=== PATIENT | male | born 1955 | race Caucasian/White ===

== ENCOUNTER 2020-08-25 14:35 | Inpatient (IN) | payer MEDICARE, SELFPAY ==
[2020-08-25 15:46] VITALS: BMI 31.5
[2020-08-25 16:00] VITALS: BP 114/76; PULSE 88; RESP 20; TEMP 36.4; O2SAT 91
[2020-08-25] MEDS: MONTELUKAST SODIUM 10 MG TABLET PO (16:53)
[2020-08-25] MEDS: DOXYCYCLINE HYCLATE 100 MG TABLET PO (16:54)
[2020-08-25] MEDS: FUROSEMIDE 40 MG TABLET PO (16:54)
[2020-08-25] MEDS: BUDESONIDE/FORMOTEROL (*SP) 160-4.5 MCG 6 GM INH 2 PUFF INHALATION (16:54)
[2020-08-25] MEDS: APIXABAN 2.5 MG TABLET 5 MG PO (17:08)
[2020-08-25] MEDS: BENZTROPINE MESYLATE 1 MG TABLET PO (17:11)
[2020-08-25] MEDS: IPRATROPIUM 0.5 MG/ALBUTEROL SULFATE 2.5 MG AMPUL.NEB 3 ML INHALATION ×2 (17:30→22:54)
--- NOTE | 2020-08-25 17:37 | ADMGEN ---
This patient, NATTY GUADARRAMA, was admitted to 2nd Floor Room 205-2. Patient/family oriented to hospital policies and general routines including ID bracelet, bed and alarms, visiting hours, pain management, procedures, bathroom and other care routines, personal items, smoking policy, room service/diet, and visiting hours. From [facility]. pt to have lung biopsy in a few weeks, he head refused it at [facility], clothing in bags on chair, pt is on o2 at home at 2L but is on 3 here for sob with movement Information on how to activate the Rapid Response Team has been discussed. Patient/Family are encouraged to report perceived risks to care and to ask questions if they do not understand what they are told or what they should do.
--- NOTE | 2020-08-25 17:39 | PC.NURSE ---
pt up to restroom, sba, pt gait is steady without any assistive devices, returns to chair, 02 back on, tray removed
[2020-08-25 17:41] VITALS: PULSE 57; RESP 20; O2SAT 92
[2020-08-25 17:46] VITALS: PULSE 60; RESP 20; O2SAT 97
[2020-08-25 20:00] VITALS: O2SAT 93
--- NOTE | 2020-08-25 20:45 | PM.IMHP ---
H&P: HPI History of Present Illness Date/Time: 08/25/20 20:45 Chief Complaint: a 64 year old that swing bed recently transferred from [facility] was initially at [facility] for left ankle cellulitis and was treated with antibiotics and subsequently transferred to [facility] where he had bilateral pulmonary opacities indicating pneumonia, CTA was performed which showed a left upper lung mass approximately 3.4cm in diameter, was scheduled for biopsy but the patient was nervous and refused, subsequently there was no treatment per the patient. Patient had history of some COPD is currently on 2L of oxygen, history of hypertension and history of DVT. The patient had MRSA positive in the nares and was on IV vancomycin and currently started on p.o. doxycycline initially is prior to transfer his white count was 29329 currently down to 14,000. Narrative: NATTY GUADARRAMA is a 64 year old male Review of Systems Review of Systems: All systems reviewed & are unremarkable except as noted in HPI and below PMFSH Past Medical History Medical History COPD (chronic obstructive pulmonary disease) HTN (hypertension) Lung mass Family History Family History Mother Cancer Social History Social History Smoking status: Former smoker Tobacco type: cigarettes Second hand tobacco smoke exposure: Yes Alcohol intake: never Substance use: never Substance use type: does not use Gender identity (if verbalized by the patient): Male Spiritual care concerns: No Meds Home Medications and Allergies Home Medications Medication Instructions Recorded Confirmed Type acetaminophen 500 mg PO Q6H PRN 08/25/20 08/25/20 History albuterol sulfate [ProAir HFA] 2 puff INHALATION QID PRN 08/25/20 08/25/20 History alendronate [Fosamax] 70 mg PO WEEKLY 08/25/20 08/25/20 History apixaban [Eliquis] 5 mg PO BID 08/25/20 08/25/20 History aripiprazole [Abilify] 5 mg PO DAILY 08/25/20 08/25/20 History atorvastatin [Lipitor] 40 mg PO HS 08/25/20 08/25/20 History benzonatate [Tessalon Perles] 100 mg PO TID PRN 08/25/20 08/25/20 History benztropine [Cogentin] 1 mg PO BID 08/25/20 08/25/20 History budesonide-formoterol [Symbicort] 2 puff INHALATION Q12H 08/25/20 08/25/20 History doxycycline hyclate 100 mg PO BID 08/25/20 08/25/20 History ferrous sulfate 1 tablet PO DAILY 08/25/20 08/25/20 History finasteride [Proscar] 5 mg PO DAILY 08/25/20 08/25/20 History fluticasone furoate 1 spray INTRANASAL DAILY 08/25/20 08/25/20 History furosemide [Lasix] 40 mg PO BID 08/25/20 08/25/20 History hydrocodone-acetaminophen 1 tablet PO Q6H PRN 08/25/20 08/25/20 History ipratropium bromide 0.5 mg INHALATION Q6H 08/25/20 08/25/20 History ipratropium-albuterol [Combivent 1 puff INHALATION Q4H 08/25/20 08/25/20 History Respimat] lactulose 10 g PO DAILY PRN 08/25/20 08/25/20 History levothyroxine [Synthroid] 75 mcg PO DAILY 08/25/20 08/25/20 History montelukast [Singulair] 10 mg PO QPM 08/25/20 08/25/20 History dikbwzuniyky-enbk-qurhg acid 1 tablet PO DAILY 08/25/20 08/25/20 History [Complete Multivitamin-Mineral] nystatin 1 applic TOPICAL BID 08/25/20 08/25/20 History omeprazole 20 mg PO BID 08/25/20 08/25/20 History polyethylene glycol 3350 [GlycoLax] 17 g PO PRN PRN MDD 17 gram 08/25/20 08/25/20 History potassium chloride 20 meq PO DAILY 08/25/20 08/25/20 History sertraline 100 mg PO DAILY 08/25/20 08/25/20 History tiotropium bromide [Spiriva with 1 cap INHALATION DAILY 08/25/20 08/25/20 History HandiHaler] Allergies Allergy/AdvReac Type Severity Reaction Status Date / Time amoxicillin Allergy Unknown Verified 08/25/20 17:22 levofloxacin [From Levaquin] Allergy Unknown Verified 08/25/20 17:22 nystatin Allergy Unknown Verified 08/25/20 17:22 Sulfa (Sulfonamide Allergy Un
[2020-08-25] MEDS: HYDROcodone/acetaminophen (*CRX) 5-325 MG TABLET 1 TAB PO (21:01)
[2020-08-25] MEDS: ATORVASTATIN 40 MG TABLET PO (21:02)
--- NOTE | 2020-08-25 22:27 | PC.NURSE ---
pt calls frequently, given bruno jose, up to restroom for bm, reclined in chair with feet elevated, fan on
[2020-08-25 22:56] VITALS: PULSE 88; RESP 18; O2SAT 93
[2020-08-25 23:04] VITALS: PULSE 83; RESP 18; O2SAT 97
[2020-08-26] VITALS (12 sets, daily range): BP systolic 106–132; BP diastolic 60–74; PULSE 82–122; RESP 18–20; TEMP 36.1–36.8; O2SAT 89–98
[2020-08-26] MEDS: IPRATROPIUM 0.5 MG/ALBUTEROL SULFATE 2.5 MG AMPUL.NEB 3 ML INHALATION ×4 (05:32→22:52)
[2020-08-26] MEDS: BUDESONIDE/FORMOTEROL (*SP) 160-4.5 MCG 6 GM INH 2 PUFF INHALATION ×2 (06:03→17:48)
[2020-08-26] MEDS: FUROSEMIDE 40 MG TABLET PO ×2 (08:55→17:46)
[2020-08-26] MEDS: POTASSIUM CHLORIDE 20 MEQ TABLET PO (08:55)
[2020-08-26 08:56] LABS: Basophils Absolute Auto 0.04 K/mm3 (0.00-0.10); Basophils Percent Auto 0.3 % (0.0-1.0); Eosinophils Absolute Auto 0.19 K/mm3 (0.02-0.50); Eosinophils Percent Auto 1.3 % (1.0-6.0); Hematocrit 42.8 % (40.0-54.0); Hemoglobin 13.7 g/dL (14.0-18.0); Immature Granulocyte Absolute 0.12 K/mm3 (0.00-0.00); Immature Granulocyte Percent A 0.8 % (0.0-0.0); Lymphocytes Absolute Auto 1.21 K/mm3 (1.10-4.50); Lymphocytes Percent Auto 8.1 % (18.0-42.0); Mean Corpuscular Hemoglobin 28.4 pg (27.0-31.0); Mean Corpuscular Volume 88.8 fL (78.0-102.0); Mean Platelet Volume 9.9 fl (8.7-11.0); Monocytes Percent Auto 4.7 % (2.0-11.0); Neutrophils Absolute Auto 12.8 K/mm3 (1.7-7.2); Neutrophils Percent Auto 84.8 % (50.0-70.0); Platelet Count Result 227 K/mm3 (150-420); Red Blood Count 4.82 M/mm3 (4.70-6.10); Red Cell Distribution Width 17.3 % (11.6-14.4)
[2020-08-26] MEDS: LEVOTHYROXINE SODIUM 75 MCG TABLET PO (08:56)
[2020-08-26] MEDS: APIXABAN 2.5 MG TABLET 5 MG PO ×2 (08:56→17:45)
[2020-08-26] MEDS: SERTRALINE HCL 50 MG TABLET 100 MG PO (08:56)
[2020-08-26] MEDS: THERAPEUTIC MULTIVITAMINS/MINERALS TAB (*BKC) 1 TABLET PO (08:56)
[2020-08-26] MEDS: FINASTERIDE 5 MG TABLET PO (08:56)
[2020-08-26] MEDS: PANTOPRAZOLE 40 MG TABLET PO (08:56)
[2020-08-26] MEDS: FERROUS SULFATE 324 MG TABLET PO (08:57)
[2020-08-26] MEDS: DOXYCYCLINE HYCLATE 100 MG TABLET PO ×2 (08:57→17:46)
[2020-08-26] MEDS: ARIPiprazole 10 MG TABLET 5 MG PO (08:57)
[2020-08-26] MEDS: BENZTROPINE MESYLATE 1 MG TABLET PO ×2 (09:02→17:54)
[2020-08-26] MEDS: FLUTICASONE PROPIONATE 0.05% NA SPR 16 GM BTL (*BKC) 1 SPRAY NASAL (09:13)
[2020-08-26 09:16] LABS: Alanine Aminotransferase 39 U/L (16-63); Albumin Level 3.3 g/dL (3.4-5.0); Alkaline Phosphatase 65 U/L (46-116); Anion Gap 9 mmol/L (8-16); Aspartate Amino Transferase 19 U/L (15-37); Bilirubin,Total 0.5 mg/dL (0.00-1.00); Blood Urea Nitrogen 23 mg/dL (7-18); Calcium 9.6 mg/dL (8.5-10.1); Carbon Dioxide 30 mmol/L (21-32); Chloride 101 mmol/L (98-108); Estimated CRCL calculation 70 ml/min; Estimated Glomerular Filt Rate > 60; Glucose 134 mg/dL (70-99); Osmolality Calculated 295 mOsm/kg (285-295); Potassium 3.2 mmol/L (3.5-5.1); Sodium 140 mmol/L (136-145); Total Protein 7.9 g/dL (6.4-8.2)
[2020-08-26] MEDS: POTASSIUM CHLORIDE 20 MEQ PACKET (FOR LIQUID) 40 MEQ PO (12:04)
[2020-08-26] MEDS: MONTELUKAST SODIUM 10 MG TABLET PO (17:46)
[2020-08-26] MEDS: ATORVASTATIN 40 MG TABLET PO (20:55)
[2020-08-26] MEDS: ACETAMINOPHEN 500 MG TABLET PO (20:59)
[2020-08-27 05:42] LABS: Hematocrit 40.3 % (40.0-54.0); Hemoglobin 12.5 g/dL (14.0-18.0); Mean Corpuscular Hemoglobin 27.5 pg (27.0-31.0); Mean Corpuscular Volume 88.8 fL (78.0-102.0); Mean Platelet Volume 10.3 fl (8.7-11.0); Platelet Count Result 215 K/mm3 (150-420); Red Blood Count 4.54 M/mm3 (4.70-6.10); Red Cell Distribution Width 17.3 % (11.6-14.4); White Blood Count 13.9 K/mm3 (4.8-10.8)
[2020-08-27] MEDS: IPRATROPIUM 0.5 MG/ALBUTEROL SULFATE 2.5 MG AMPUL.NEB 3 ML INHALATION ×3 (05:55→17:36)
[2020-08-27 06:02] LABS: Anion Gap 10 mmol/L (8-16); Blood Urea Nitrogen 24 mg/dL (7-18); Calcium 9.5 mg/dL (8.5-10.1); Carbon Dioxide 28 mmol/L (21-32); Chloride 103 mmol/L (98-108); Estimated CRCL calculation 76 ml/min; Estimated Glomerular Filt Rate > 60; Glucose 94 mg/dL (70-99); Osmolality Calculated 296 mOsm/kg (285-295); Potassium 3.5 mmol/L (3.5-5.1); Sodium 141 mmol/L (136-145)
[2020-08-27] MEDS: BUDESONIDE/FORMOTEROL (*SP) 160-4.5 MCG 6 GM INH 2 PUFF INHALATION ×2 (06:16→17:36)
[2020-08-27] MEDS: ACETAMINOPHEN 500 MG TABLET PO ×2 (06:46→14:52)
[2020-08-27 08:00] VITALS: BP 129/76; PULSE 113; RESP 22; TEMP 36.6; O2SAT 92
[2020-08-27] MEDS: PANTOPRAZOLE 40 MG TABLET PO (09:28)
[2020-08-27] MEDS: FUROSEMIDE 40 MG TABLET PO ×2 (09:28→16:48)
[2020-08-27] MEDS: SERTRALINE HCL 50 MG TABLET 100 MG PO (09:28)
[2020-08-27] MEDS: FERROUS SULFATE 324 MG TABLET PO (09:28)
[2020-08-27] MEDS: APIXABAN 2.5 MG TABLET 5 MG PO ×2 (09:28→16:48)
[2020-08-27] MEDS: ARIPiprazole 10 MG TABLET 5 MG PO (09:29)
[2020-08-27] MEDS: POTASSIUM CHLORIDE 20 MEQ TABLET PO (09:29)
[2020-08-27] MEDS: FINASTERIDE 5 MG TABLET PO (09:29)
[2020-08-27] MEDS: BENZTROPINE MESYLATE 1 MG TABLET PO ×2 (09:29→16:49)
[2020-08-27] MEDS: THERAPEUTIC MULTIVITAMINS/MINERALS TAB (*BKC) 1 TABLET PO (09:29)
[2020-08-27] MEDS: DOXYCYCLINE HYCLATE 100 MG TABLET PO ×2 (09:29→16:48)
[2020-08-27] MEDS: FLUTICASONE PROPIONATE 0.05% NA SPR 16 GM BTL (*BKC) 1 SPRAY NASAL (09:30)
[2020-08-27] MEDS: LEVOTHYROXINE SODIUM 75 MCG TABLET PO (09:30)
[2020-08-27 13:30] VITALS: PULSE 96; RESP 20; O2SAT 93
[2020-08-27 13:35] VITALS: PULSE 96; RESP 20; O2SAT 93
[2020-08-27 16:00] VITALS: BP 111/78; PULSE 98; RESP 20; TEMP 37; O2SAT 93
[2020-08-27] MEDS: MONTELUKAST SODIUM 10 MG TABLET PO (16:48)
[2020-08-27 17:49] VITALS: PULSE 94; PULSE 96; RESP 20; RESP 22; O2SAT 93
[2020-08-27 20:00] VITALS: O2SAT 93
[2020-08-27] MEDS: ATORVASTATIN 40 MG TABLET PO (20:07)
[2020-08-28] VITALS (7 sets, daily range): BP systolic 118–132; BP diastolic 60–77; PULSE 98–118; RESP 20–22; TEMP 35.8–36.7; O2SAT 82–97
[2020-08-28] MEDS: IPRATROPIUM 0.5 MG/ALBUTEROL SULFATE 2.5 MG AMPUL.NEB 3 ML INHALATION ×5 (00:18→23:52)
[2020-08-28] MEDS: BUDESONIDE/FORMOTEROL (*SP) 160-4.5 MCG 6 GM INH 2 PUFF INHALATION ×2 (05:36→18:11)
[2020-08-28] MEDS: FLUTICASONE PROPIONATE 0.05% NA SPR 16 GM BTL (*BKC) 1 SPRAY NASAL (09:14)
[2020-08-28] MEDS: SERTRALINE HCL 50 MG TABLET 100 MG PO (09:14)
[2020-08-28] MEDS: APIXABAN 2.5 MG TABLET 5 MG PO ×2 (09:14→16:35)
[2020-08-28] MEDS: POTASSIUM CHLORIDE 20 MEQ TABLET PO (09:15)
[2020-08-28] MEDS: PANTOPRAZOLE 40 MG TABLET PO (09:15)
[2020-08-28] MEDS: DOXYCYCLINE HYCLATE 100 MG TABLET PO ×2 (09:15→16:35)
[2020-08-28] MEDS: THERAPEUTIC MULTIVITAMINS/MINERALS TAB (*BKC) 1 TABLET PO (09:15)
[2020-08-28] MEDS: FERROUS SULFATE 324 MG TABLET PO (09:15)
[2020-08-28] MEDS: FINASTERIDE 5 MG TABLET PO (09:15)
[2020-08-28] MEDS: FUROSEMIDE 40 MG TABLET PO ×2 (09:15→16:36)
[2020-08-28] MEDS: LEVOTHYROXINE SODIUM 75 MCG TABLET PO (09:15)
[2020-08-28] MEDS: ARIPiprazole 10 MG TABLET 5 MG PO (09:16)
[2020-08-28] MEDS: BENZTROPINE MESYLATE 1 MG TABLET PO ×2 (09:16→16:36)
[2020-08-28] MEDS: HYDROcodone/acetaminophen (*CRX) 5-325 MG TABLET 1 TAB PO (14:13)
--- NOTE | 2020-08-28 15:45 | PC.NURSE ---
pt reports lunch did not agree with him and he has had a sm amt of emesis and a bm, pt sitting in chair, afebrile, no c/o stomach upset at this time
[2020-08-28] MEDS: MONTELUKAST SODIUM 10 MG TABLET PO (16:35)
[2020-08-28] MEDS: ACETAMINOPHEN 500 MG TABLET PO (19:41)
[2020-08-28] MEDS: ATORVASTATIN 40 MG TABLET PO (21:23)
[2020-08-29] VITALS (10 sets, daily range): BP systolic 104–130; BP diastolic 67–88; PULSE 66–122; RESP 18–22; TEMP 36.4–37.2; O2SAT 3–98
[2020-08-29] MEDS: IPRATROPIUM 0.5 MG/ALBUTEROL SULFATE 2.5 MG AMPUL.NEB 3 ML INHALATION ×4 (05:35→22:45)
[2020-08-29] MEDS: BUDESONIDE/FORMOTEROL (*SP) 160-4.5 MCG 6 GM INH 2 PUFF INHALATION ×2 (06:08→17:55)
[2020-08-29] MEDS: FLUTICASONE PROPIONATE 0.05% NA SPR 16 GM BTL (*BKC) 1 SPRAY NASAL (08:49)
[2020-08-29] MEDS: PANTOPRAZOLE 40 MG TABLET PO (08:50)
[2020-08-29] MEDS: FERROUS SULFATE 324 MG TABLET PO (08:50)
[2020-08-29] MEDS: ACETAMINOPHEN 500 MG TABLET PO (08:50)
[2020-08-29] MEDS: FUROSEMIDE 40 MG TABLET PO ×2 (08:50→16:00)
[2020-08-29] MEDS: ARIPiprazole 10 MG TABLET 5 MG PO (08:50)
[2020-08-29] MEDS: FINASTERIDE 5 MG TABLET PO (08:50)
[2020-08-29] MEDS: LEVOTHYROXINE SODIUM 75 MCG TABLET PO (08:50)
[2020-08-29] MEDS: BENZTROPINE MESYLATE 1 MG TABLET PO ×2 (08:50→16:00)
[2020-08-29] MEDS: THERAPEUTIC MULTIVITAMINS/MINERALS TAB (*BKC) 1 TABLET PO (08:50)
[2020-08-29] MEDS: POTASSIUM CHLORIDE 20 MEQ TABLET PO (08:50)
[2020-08-29] MEDS: SERTRALINE HCL 50 MG TABLET 100 MG PO (08:51)
[2020-08-29] MEDS: APIXABAN 2.5 MG TABLET 5 MG PO ×2 (08:57→15:59)
--- NOTE | 2020-08-29 13:00 | WPDPN ---
Progress Note: A&P Assessment and Plan (1) Generalized weakness: Code(s): R53.1 - Weakness Status: Acute Assessment and Plan: 08/29/2020 Pt to work with PT/OT for reconditioning and stamina so that he may be able to return home and perform ADLs and perform other self care tasks. Provide Pt with proper nutrition for energy and health. (2) COPD (chronic obstructive pulmonary disease): Code(s): J44.9 - Chronic obstructive pulmonary disease, unspecified Status: Acute Assessment and Plan: 08/29/2020 Stable at this time, Albuterol, DuoNebs, Supplemental Oxygen, has home Oxygen, occasional rhonchi that clears with coughing (3) Lung mass: Code(s): R91.8 - Other nonspecific abnormal finding of lung field Status: Acute Assessment and Plan: 08/29/2020 Pt was to have a biopsy at [facility] but became nervous and did not have the procedure performed. Pt will need to follow up with his PCP and Oncologist (4) MRSA elsewhere/NOS: Code(s): A49.02 - Methicillin resistant Staphylococcus aureus infection, unspecified site Status: Acute Assessment and Plan: 08/29/2020 Pt was treated for MRSA of the nares, had finished Vancomycin at [facility] and was then given Doxycycline with a finish date of 08/28/2020 (5) History of DVT (deep vein thrombosis): Code(s): Z86.718 - Personal history of other venous thrombosis and embolism Status: Inactive Assessment and Plan: 08/29/2020 Continue Pt's home medication of Eliquis (6) Hypothyroid: Code(s): E03.9 - Hypothyroidism, unspecified Status: Acute Assessment and Plan: 08/29/2020 Continue Pt's home medication of Levofloxacin (7) Hyperlipidemia: Code(s): E78.5 - Hyperlipidemia, unspecified Status: Acute Assessment and Plan: 08/29/2020 Continue Pt's home medication of Atorvastatin Review of Systems Constitutional: Constitutional: Reports no additional constitutional complaints Cardiovascular: Cardiovascular: Reports no additional cardiovascular complaints, Denies chest pain, Denies chest pain at rest and Denies chest pain with activity Respiratory: Respiratory: Reports no additional respiratory complaints, Denies dyspnea and Denies dyspnea on exertion Gastrointestinal: Gastrointestinal: Reports no additional gastrointestinal complaints Genitourinary: Genitourinary: Reports no additional male genitourinary complaints Musculoskeletal: Musculoskeletal: Reports no additional musculoskeletal complaints Exam Const: General: cooperative, comfortable, no acute distress, alert, awake and Physically active Nutritional Appearance: overweight Resp: Effort & Inspection: normal respiratory effort Auscultation: rhonchi (clears with series of coughing ) and diminished lung sounds (posterior bases) Cardio: Rate: regular rate Heart sounds: S1 normal heart sound present, S2 normal heart sound present, no click, no gallops, no murmurs and no rubs Extrem: General: no pedal edema Objective Data Vital Signs Vital Signs: Vital Signs - 24 hr 08/28/20 15:42 08/28/20 18:15 08/28/20 18:35 Temperature 96.5 F L Pulse Rate 103 H 118 H 105 H Respiratory Rate 22 H 22 H 20 Blood Pressure 118/70 Pulse Oximetry 92 86 L 91 08/28/20 23:53 08/29/20 05:36 08/29/20 05:46 Temperature 96.4 F L Pulse Rate 98 83 84 Respiratory Rate 20 18 18 Blood Pressure 124/77 Pulse Oximetry 82 L 93 96 08/29/20 07:20 08/29/20 12:25 08/29/20 12:36 Temperature 99 F Pulse Rate 90 114 H 85 Respiratory Rate 20 20 20 Blood Pressure 104/67 Pulse Oximetry 92 91 3 L Intake/Output Intake/Output: Intake & Output 08/26/20 08/27/20 08/28/20 08/29/20 23:59 23:59 23:59 23:59 Intake Total 4188 117 8783 420 Output Total 750 200 350 Balance 077 141 3913 420 Meds/Results Medications: Active Medications Generic Name Dose Route Start Last Admin Trade Name Freq PRN Reason Stop Dose Admin Acetaminophen 500 mg
[2020-08-29] MEDS: HYDROcodone/acetaminophen (*CRX) 5-325 MG TABLET 1 TAB PO (15:59)
[2020-08-29] MEDS: MONTELUKAST SODIUM 10 MG TABLET PO (17:56)
[2020-08-29] MEDS: ATORVASTATIN 40 MG TABLET PO (20:28)
[2020-08-30] VITALS: BP 124/68; PULSE 70; RESP 20; TEMP 36.6; O2SAT 90
[2020-08-30] MEDS: IPRATROPIUM 0.5 MG/ALBUTEROL SULFATE 2.5 MG AMPUL.NEB 3 ML INHALATION (05:32)
[2020-08-30 05:33] VITALS: PULSE 92; RESP 18; O2SAT 92
[2020-08-30 05:41] VITALS: PULSE 92; RESP 18; O2SAT 94
[2020-08-30 05:46] LABS: Hematocrit 39.1 % (40.0-54.0); Hemoglobin 12.1 g/dL (14.0-18.0); Mean Corpuscular HGB Conc 30.9 g/dL (32.0-36.0); Mean Corpuscular Hemoglobin 27.2 pg (27.0-31.0); Mean Corpuscular Volume 87.9 fL (78.0-102.0); Mean Platelet Volume 10.5 fl (8.7-11.0); Platelet Count Result 198 K/mm3 (150-420); Red Blood Count 4.45 M/mm3 (4.70-6.10); White Blood Count 10.9 K/mm3 (4.8-10.8)
[2020-08-30] MEDS: BUDESONIDE/FORMOTEROL (*SP) 160-4.5 MCG 6 GM INH 2 PUFF INHALATION (06:01)
[2020-08-30 06:04] LABS: Anion Gap 8 mmol/L (8-16); Blood Urea Nitrogen 15 mg/dL (7-18); Calcium 8.9 mg/dL (8.5-10.1); Carbon Dioxide 31 mmol/L (21-32); Chloride 102 mmol/L (98-108); Estimated CRCL calculation 74 ml/min; Estimated Glomerular Filt Rate > 60; Glucose 87 mg/dL (70-99); Magnesium 1.9 mg/dL (1.8-2.4); Osmolality Calculated 291 mOsm/kg (285-295); Potassium 3.3 mmol/L (3.5-5.1); Sodium 141 mmol/L (136-145)
[2020-08-30 07:37] VITALS: BP 95/57; PULSE 88; RESP 18; TEMP 36.8; O2SAT 95
--- NOTE | 2020-08-30 08:03 | PCOTNOTE ---
OT attempted to see patient this am and he refused OT. Patient reports, I am so sore from overdoing it yesterday, I am not doing therapy today.
[2020-08-30] MEDS: APIXABAN 2.5 MG TABLET 5 MG PO (08:51)
[2020-08-30] MEDS: PANTOPRAZOLE 40 MG TABLET PO (08:51)
[2020-08-30] MEDS: SERTRALINE HCL 50 MG TABLET 100 MG PO (08:51)
[2020-08-30] MEDS: FUROSEMIDE 40 MG TABLET PO (08:51)
[2020-08-30] MEDS: LEVOTHYROXINE SODIUM 75 MCG TABLET PO (08:51)
[2020-08-30] MEDS: FLUTICASONE PROPIONATE 0.05% NA SPR 16 GM BTL (*BKC) 1 SPRAY NASAL (08:52)
[2020-08-30] MEDS: THERAPEUTIC MULTIVITAMINS/MINERALS TAB (*BKC) 1 TABLET PO (08:52)
[2020-08-30] MEDS: FINASTERIDE 5 MG TABLET PO (08:52)
[2020-08-30] MEDS: FERROUS SULFATE 324 MG TABLET PO (08:52)
[2020-08-30] MEDS: POTASSIUM CHLORIDE 20 MEQ TABLET PO (08:52)
[2020-08-30] MEDS: BENZTROPINE MESYLATE 1 MG TABLET PO (08:54)
[2020-08-30] MEDS: ARIPiprazole 10 MG TABLET 5 MG PO (08:54)
--- NOTE | 2020-08-30 09:55 | PC.NURSE ---
PT in working with patient, plan to dc home today
--- NOTE | 2020-08-30 11:58 | PM.DS ---
DS: Admitting Diagnosis Admitting Diagnosis Admitting Diagnosis: generalized weakness DS: Discharge Diagnosis Discharge Diagnosis (1) Generalized weakness: Code(s): R53.1 - Weakness Status: Acute Assessment and Plan: Patient will discharge home with self-care able to ambulate 75 to 200 feet without device (2) COPD (chronic obstructive pulmonary disease): Code(s): J44.9 - Chronic obstructive pulmonary disease, unspecified Status: Acute Assessment and Plan: stable continue home medication (3) Lung mass: Code(s): R91.8 - Other nonspecific abnormal finding of lung field Status: Acute Assessment and Plan: will f/u with oncologist (4) Hypothyroid: Code(s): E03.9 - Hypothyroidism, unspecified Status: Acute Assessment and Plan: cont home medication (5) MRSA elsewhere/NOS: Code(s): A49.02 - Methicillin resistant Staphylococcus aureus infection, unspecified site Status: Acute Assessment and Plan: complete antibiotic treatment (6) HTN (hypertension): Code(s): I10 - Essential (primary) hypertension Status: Acute Assessment and Plan: stable contniue home medication (7) Hyperlipidemia: Code(s): E78.5 - Hyperlipidemia, unspecified Status: Acute Assessment and Plan: continue home medication DS: Summary Hospital Course Reason for hospitalization: weakness Hospital Course: This is a 64-year-old male that to our swing bed after being treated for left ankle cellulitis and recently being diagnosed with a lung mass. Patient is aware that he needs to follow-up with an oncologist concerning his lung mass and has agreed to do so. The patient denies SOB, CP, palpitation, extremity numbness, lightheadedness, dizziness, constipation, diarrhea, chills, or fever. On discharge patient is ambulating 75 -200 feet without a device he was discharged home with self-care Time Spent with Patient Time attestation: Total time spent providing and/or coordinating discharge services:60 Exam Narrative: Exam Narrative: GENERAL: This is a well-nourished, cognitive impaired, in no apparent distress. HEAD: normocephalic, atraumatic. EYES: PERRL. Sclera clear/white. Vision is grossly intact. EARS: External ears normal, auditory canals clear and without drainage, TMs normal without perforation. Hearing grossly intact. NOSE: External nose normal with no obvious nasal discharge, nares without redness, no rhinorrhea. THROAT: Mucous membranes moist, posterior pharynx clear. NECK: Neck supple, non-tender without lymphadenopathy, masses or thyromegaly. CARDIOVASCULAR: Regular rate and rhythm without murmurs, gallops, or rubs. RESPIRATORY: Clear to auscultation. Breath sounds equal bilaterally. No wheezes, rales, or rhonchi. GASTROINTESTINAL: Abdomen soft, non-tender, nondistended. Bowel sounds are active. No hepato-splenomegaly, or palpable masses. No guarding. SKIN: warm, intact with no suspicious lesions or rash, good texture and turgor. NEURO: awake, alert, and oriented to person, place and time. There were no obvious focal neurologic abnormalities. Steady gait EXTREMITIES: Normal range of motion. No edema. No calf tenderness. Negative Homans sign bilaterally. BACK: Nontender without deformity or crepitance. No flank tenderness. DS: Data Data Completed and Pending Labs on day of discharge: Labs from last 24 hours 08/30/20 08/30/20 05:31 05:31 WBC 10.9 H RBC 4.45 L Hgb 12.1 L Hct 39.1 L MCV 87.9 MCH 27.2 MCHC 30.9 L RDW 17.0 H Plt Count 198 MPV 10.5 Sodium 141 Potassium 3.3 L Chloride 102 Carbon Dioxide 31 Anion Gap 8 BUN 15 Creatinine 1.06 Estim Creat Clear Calc 74 Estimated GFR > 60 Glucose 87 Calculated Osmolality 291 Calcium 8.9 Magnesium 1.9 Discharge Plan Discharge Attending physician on discharge: Daniel Bragg Dis
--- NOTE | 2020-08-30 12:30 | PC.NURSE ---
Discharge via wheelchair to home, friend picked him up, discharge instructions reviewed, no question voiced upon discharge, verbalized understanding
--- NOTE | 2020-09-02 14:28 | PC.NURSE ---
Unable to contact for discharge call back.
== END 2020-08-30 12:30 | disposition home or self-care (01) | DRG 948 ==
PROVIDERS: Nurse Practitioner Family; Admitting Provider Emergency Medicine; PCP Family Medicine; Visit Provider Emergency Medicine
DX: R53.1 Weakness (principal); J44.1 Chronic obstructive pulmonary disease with (acute) exacerbation; I10 Essential (primary) hypertension; A49.02 Methicillin resistant Staphylococcus aureus infection, unspecified site; E03.9 Hypothyroidism, unspecified; E78.5 Hyperlipidemia, unspecified; R91.8 Other nonspecific abnormal finding of lung field; Z87.891 Personal history of nicotine dependence
CPT/HCPCS: 36415; 80048; 80053; 83735; 85025; 85027; 94640; 97110; 97161; 97165; 97530; A9270